=== PATIENT | female | born 1965 | race Caucasian/White ===

== ENCOUNTER 2017-02-06 14:36 | Emergency (ER) | payer BC ==
--- NOTE | 2017-02-06 14:40 | UC ---
Throat Pain/Nasal Edgar HPI - HPI Summary HPI Summary: 51 YEAR OLD FEMALE PRESENTS WITH COMPLAINS OF SINUS CONGESTION AND BACK PAIN. - History of Current Complaint Stated Complaint: FEVER,SINUS COMPLAINT Time Seen by Provider: 02/06/17 14:39 Hx Obtained From: Patient Hx Last Menstrual Period: uterine ablation Onset/Duration: Sudden Onset Severity: Moderate Pain Scale Used: 0-10 Numeric - 5 - Allergies/Home Medications Allergies/Adverse Reactions: Allergies Allergy/AdvReac Type Severity Reaction Status Date / Time Hydrocodone AdvReac Severe Nausea Verified 02/06/17 14:42 PMH/Surg Hx/FS Hx/Imm Hx Previously Healthy: Yes - Surgical History Surgical History: Yes Surgery Procedure, Year, and Place: appendectomy- [place]. tubal ligation- [place]. [id number]. bilateral knee scoping- [place]. d&c- [place]. UTERINE ABLATION. GALLBLADDER. RIGHT WRIST CARPAL TUNNEL RELEASE - Social History Alcohol Use: Daily Alcohol Amount: 2 GLASS OF wine daily with dinner Substance Use Type: None Smoking Status (MU): Former Smoker Amount Used/How Often: 10-15 CIGARETTES PER DAY X 6-7 YEARS Have You Smoked in the Last Year: No When Did the Patient Quit Smoking/Using Tobacco: 20 YEARS AGO - Immunization History Most Recent Influenza Vaccination: not this season Review of Systems Constitutional: Negative Skin: Negative Eyes: Negative ENT: Sore Throat, Nasal Discharge, Sinus Congestion, Sinus Pain/Tenderness Respiratory: Cough Cardiovascular: Negative Gastrointestinal: Negative Genitourinary: Negative Motor: Negative Neurovascular: Negative Musculoskeletal: Negative Neurological: Negative Psychological: Negative All Other Systems Reviewed And Are Negative: Yes Physical Exam Triage Information Reviewed: Yes Vital Signs Reviewed: Yes Eye Exam: Normal ENT: Positive: Pharyngeal erythema, Nasal congestion, Nasal drainage, Sinus tenderness Dental Exam: Normal Neck exam: Normal Neck: Positive: 1 Respiratory Exam: Normal Cardiovascular Exam: Normal Abdominal Exam: Normal Musculoskeletal Exam: Normal Neurological Exam: Normal Psychological Exam: Normal Skin Exam: Normal Throat Pain/Nasal Course/Dx - Differential Dx/Diagnosis Provider Diagnoses: SINUSITIS. LOWER BACK PAIN Discharge - Discharge Plan Condition: Stable Disposition: HOME Prescriptions: Amoxicillin/Clavulanate TAB* [Augmentin TAB 875*] 875 mg PO BID #20 tab LoraTADine TAB(NF) [Claritin 10 MG TAB(NF)] 10 mg PO DAILY #30 tab Methylprednisolone [Medrol Dosepak 4 MG*] 4 mg PO .SEE JOSE INSTRUCTION #21 tab Patient Education Materials: Sinusitis (ED), Fever in Adults (ED) Referrals: Alona Tellez NP [Primary Care Provider] -
[2017-02-06 14:46] VITALS: BP 140/93
[2017-02-06] MEDS ORDERED: Amoxicillin/Clavulanate TAB* 875 MG PO ONE (15:10)
[2017-02-06] MEDS ORDERED: predniSONE TAB* 20 MG PO ONE (15:10)
== END 2017-02-06 15:17 | disposition home or self-care (01) ==
LOC: UCCORT 14:36
DX: J32.9 Chronic sinusitis, unspecified (principal); M54.5 Low back pain; Z88.5 Allergy status to narcotic agent; Z87.891 Personal history of nicotine dependence; R50.9 Fever, unspecified
CPT/HCPCS: 81003; 87086; 87502; 99212; A9270-GY; G0463; J7512